=== PATIENT | male | born 1950 | race Caucasian/White ===

== ENCOUNTER 2021-01-29 13:47 | Outpatient (REF) | payer MEDICARE, SELFPAY ==
--- NOTE | ~2021-01-29 | XR_ITS ---
EXAMINATION: LEFT ANKLE AND LEFT FOOT. CLINICAL INFORMATION: Achilles tendinosis. COMPARISON: None TECHNIQUE: Left foot 3 views. Left ankle 3 views. FINDINGS: LEFT FOOT: There is no visible fracture, dislocation or subluxation. The soft tissues are normal. The ankle mortise and subtalar joints are normal. LEFT ANKLE: The ankle mortise and subtalar joints are normal. There is a small avulsion fracture fragment tip of medial malleolus. Tiny retrocalcaneal heel enthesophytes without soft tissue swelling. XR/XR foot LT min 3V IMPRESSION: Tiny retrocalcaneal enthesophyte without soft tissue swelling. There is an old avulsion fracture fragment tip of medial malleolus. There is minimal bimalleolar soft tissue swelling with no acute fracture or dislocation seen.
--- NOTE | ~2021-01-29 | XR_ITS ---
EXAMINATION: LEFT ANKLE AND LEFT FOOT. CLINICAL INFORMATION: Achilles tendinosis. COMPARISON: None TECHNIQUE: Left foot 3 views. Left ankle 3 views. FINDINGS: LEFT FOOT: There is no visible fracture, dislocation or subluxation. The soft tissues are normal. The ankle mortise and subtalar joints are normal. LEFT ANKLE: The ankle mortise and subtalar joints are normal. There is a small avulsion fracture fragment tip of medial malleolus. Tiny retrocalcaneal heel enthesophytes without soft tissue swelling. XR/XR ankle LT min 3V IMPRESSION: Tiny retrocalcaneal enthesophyte without soft tissue swelling. There is an old avulsion fracture fragment tip of medial malleolus. There is minimal bimalleolar soft tissue swelling with no acute fracture or dislocation seen.
== END 2021-01-29 13:48 | disposition home or self-care (01) ==
LOC: HO.XRAY 13:47
PROVIDERS: PCP Internal Medicine; Visit Provider Podiatrist
DX: M67.88 Other specified disorders of synovium and tendon, other site (principal)
CPT/HCPCS: 73610; 73630

== ENCOUNTER 2021-03-07 14:00 | Outpatient (RCR) | payer MEDICARE, SELFPAY | END 2021-03-20 13:51 | disposition home or self-care (01) | LOC: HO.PT 14:00 | PROVIDERS: PCP Internal Medicine; Visit Provider Podiatrist | DX: M76.62 Achilles tendinitis, left leg (principal) | CPT/HCPCS: 97035; 97110; 97112; 97140; 97162 ==

== ENCOUNTER 2021-04-02 10:31 | Outpatient (REF) | payer MEDICARE, SELFPAY ==
[2021-04-02 10:34] LABS: MANUAL DIFF FLAG NO
[2021-04-02 10:44] LABS: Basophils Percent Auto 0.5 % (0-2); Eosinophils Absolute Auto 0.2 X10*3/uL (0.0-0.4); Eosinophils Percent Auto 2.4 % (0-4); Hematocrit 46.2 % (42-52); Hemoglobin 14.8 g/dl (14.0-18.0); Imm Gran Abs Auto 0.02 X10*3/uL (0.00-0.03); Imm Gran Pct Auto 0.3 % (0.0-0.4); Lymphocytes Absolute Auto 1.9 X10*3/uL (1.2-4.9); Lymphocytes Percent Auto 28.5 % (20-40); Mean Corpuscular Hemoglobin 29.2 pg (27.0-33.0); Mean Corpuscular Volume 91.3 fL (80-98); Mean Platelet Volume 9.1 fL (9.4-12.4); Monocytes Absolute Auto 0.8 X10*3/uL (0.1-1.2); Monocytes Percent Auto 12.2 % (2-11); Neutrophils Absolute Auto 3.7 X10*3/uL (2.0-8.3); Neutrophils Percent Auto 56.1 % (45-73); Platelet Count 221 X10*3/uL (160-400); Red Blood Count 5.06 X10*6/uL (4.60-5.80); Red Cell Distribution Width 13.6 % (11.0-16.0); White Blood Count 6.6 X10*3/uL (4.8-10.8)
[2021-04-02 10:50] LABS: Appearance Urine CLEAR; Color Urine YELLOW; Glucose Urine UA NEG (NEG); Leukocyte Esterase Urine NEG (NEG); Nitrite Urine NEG (NEG); Urine Blood NEG (NEG); Urine Ketones NEG (NEG); Urine Protein NEG (NEG-TRACE)
[2021-04-02 11:05] LABS: Alanine Aminotransferase 15 U/L (0-40); Albumin Level 4.3 g/dL (3.5-5.0); Alkaline Phosphatase 57 U/L (39-117); Anion Gap 9 (12-20); Aspartate Amino Transferase 17 U/L (5-37); Bilirubin Total 0.7 mg/dL (0.0-1.0); Blood Urea Nitrogen 17 mg/dL (9-16); Calcium 9.1 mg/dL (8.4-10.2); Carbon Dioxide 28 mmol/L (22-29); Chloride 103 mmol/L (96-108); Cholesterol 190 mg/dL; Estimated Glomerular Filt Rate > 60; Glucose Fasting 105 mg/dL (60-99); HDL Cholesterol 45 mg/dL; LDL Cholesterol Calculated 117 mg/dl; Potassium 4.2 mmol/L (3.3-5.1); Sodium 136 mmol/L (135-145); Total Protein 7.5 g/dL (6.5-8.0); Triglycerides 144 mg/dL
[2021-04-02 11:13] LABS: Estimated Average Glucose 117 mg/dL; Hemoglobin A1c % 5.7 %
[2021-04-02 11:17] LABS: Creatinine Urine 77.25 mg/dL; Microalbumin Urine < 5.0 mg/L
== END 2021-04-02 10:32 | disposition home or self-care (01) ==
LOC: HO.LNP 10:31
PROVIDERS: Visit Provider Internal Medicine
DX: R73.09 Other abnormal glucose (principal); R09.89 Other specified symptoms and signs involving the circulatory and respiratory systems
CPT/HCPCS: 80053; 80061; 81003; 82043; 83036; 84153; 85025

== ENCOUNTER 2021-04-05 15:28 | Outpatient (REF) | payer MEDICARE, SELFPAY ==
[2021-04-11 01:41] LABS: Testosterone, Free 55.4 pg/mL (35.0-155.0); Testosterone, Total 315 ng/dL (250-1100)
== END 2021-04-05 15:29 | disposition home or self-care (01) ==
LOC: HO.LNP 15:28
PROVIDERS: Visit Provider Internal Medicine
DX: N52.9 Male erectile dysfunction, unspecified (principal)
CPT/HCPCS: 84402; 84403

== ENCOUNTER 2021-07-06 13:00 | Outpatient (RCR) | payer MEDICARE, SELFPAY | END 2021-07-06 15:23 | disposition home or self-care (01) | LOC: HO.PT 13:00 | PROVIDERS: Visit Provider Physician Assistant | DX: M76.62 Achilles tendinitis, left leg (principal) | CPT/HCPCS: 97033; 97110; 97161; 97530; 97535 ==

== ENCOUNTER 2022-03-11 11:09 | Outpatient (REF) | payer MEDICARE, SELFPAY ==
--- NOTE | ~2022-03-11 | XR_ITS ---
EXAMINATION: XR CERVICAL SPINE CLINICAL INFORMATION: Neck pain COMPARISON: None TECHNIQUE: AP, lateral, odontoid, Fuchs, and bilateral oblique views of the cervical spine FINDINGS: There is reversal of the normal cervical lordosis. The dens is intact. The lateral masses are normally positioned. Normal prevertebral soft tissues. There is multilevel degenerative disc disease manifested by loss of disc height, endplate sclerosis, and anterior as well as posterior osteophytosis particularly at C5-C6. Lung apices are clear. There is osseous neuroforaminal narrowing bilaterally at C4-C5 and C5-C6 on oblique views. XR/XR cervical spine 4V IMPRESSION: No acute osseous abnormality. Multilevel degenerative disc disease greatest at C5-C6 with osseous neuroforaminal narrowing bilaterally at C4-C5 and C5-C6. Consider cervical spine MRI for further evaluation as clinically indicated.
== END 2022-03-11 11:10 | disposition home or self-care (01) ==
LOC: HO.XRAY 11:09
PROVIDERS: PCP Internal Medicine; Visit Provider Internal Medicine
DX: M54.2 Cervicalgia (principal)
CPT/HCPCS: 72050

== ENCOUNTER 2022-04-02 10:55 | Outpatient (REF) | payer MEDICARE, SELFPAY ==
[2022-04-02 11:02] LABS: MANUAL DIFF FLAG NO
[2022-04-02 11:13] LABS: Basophils Percent Auto 0.5 % (0-2); Eosinophils Absolute Auto 0.1 X10*3/uL (0.0-0.4); Eosinophils Percent Auto 2.1 % (0-4); Hematocrit 45.7 % (42.0-52.0); Hemoglobin 14.9 g/dl (14.0-18.0); Imm Gran Abs Auto 0.02 X10*3/uL (0.00-0.03); Imm Gran Pct Auto 0.3 % (0.0-0.4); Lymphocytes Absolute Auto 2.2 X10*3/uL (1.2-4.9); Lymphocytes Percent Auto 35.2 % (20-40); Mean Corpuscular HGB Conc 32.6 g/dl (31.0-36.0); Mean Corpuscular Hemoglobin 29.3 pg (27.0-33.0); Mean Platelet Volume 9.6 fL (9.4-12.4); Monocytes Absolute Auto 0.7 X10*3/uL (0.1-1.2); Neutrophils Absolute Auto 3.2 x10*3/uL (2.0-8.3); Neutrophils Percent Auto 50.9 % (45-73); Platelet Count 206 X10*3/uL (160-400); Red Blood Count 5.08 X10*6/uL (4.60-5.80); Red Cell Distribution Width 13.6 % (11.0-16.0); White Blood Count 6.2 X10*3/uL (4.8-10.8)
[2022-04-02 11:21] LABS: Appearance Urine Clear; Color Urine Yellow; Glucose Urine UA Negative (Negative); Leukocyte Esterase Urine Negative (Negative); Nitrite Urine Negative (Negative); PH 5.5 (5.0-9.0); Urine Blood Negative (Negative); Urine Ketones Negative (Negative); Urine Protein Negative (Neg-Trace)
[2022-04-02 11:22] LABS: Estimated Average Glucose 114 mg/dL; Hemoglobin A1c % 5.6 %
[2022-04-02 11:25] LABS: Alanine Aminotransferase 11 U/L (0-40); Albumin Level 4.3 g/dL (3.5-5.0); Alkaline Phosphatase 58 U/L (39-117); Anion Gap 16 (12-20); Aspartate Amino Transferase 19 U/L (5-37); Bacteria Urine None Seen (None Seen); Blood Urea Nitrogen 13 mg/dL (9-16); Calcium 9.4 mg/dL (8.4-10.2); Carbon Dioxide 28 mmol/L (22-29); Chloride 101 mmol/L (96-108); Cholesterol 177 mg/dL; Estimated Glomerular Filt Rate > 60; Glucose Fasting 105 mg/dL (60-99); HDL Cholesterol 49 mg/dL; Hyaline Casts Urine 0-2 /LPF (0-2); LDL Cholesterol Calculated 104 mg/dl; Potassium 4.5 mmol/L (3.3-5.1); RBC Urine 0-2 /HPF (0-2); Sodium 140 mmol/L (135-145); Squamous Epithelial Cell Urine 0-2 /HPF (0-2); Total Protein 7.4 g/dL (6.5-8.0); Triglycerides 120 mg/dL; WBC Urine 0-5 /HPF (0-5)
[2022-04-02 11:46] LABS: PSA,Total (Free>4and<10) 1.92 ng/mL (0.00-4.00)
[2022-04-02 11:47] LABS: Creatinine Urine 143.97 mg/dL; Microalbum/Creatinine Ratio Ur 4.1 ug/mg cr
== END 2022-04-02 10:56 | disposition home or self-care (01) ==
LOC: HO.LNP 10:55
PROVIDERS: Visit Provider Internal Medicine
DX: Z12.5 Encounter for screening for malignant neoplasm of prostate (principal); R73.03 Prediabetes
CPT/HCPCS: 80053; 80061; 81001; 82043; 83036; 84153; 85025

== ENCOUNTER → 2022-04-25 08:43 | Outpatient (REF) | payer MEDICARE, SELFPAY ==
--- NOTE | 2022-04-25 09:00 | CA_ITS ---
Acquisition Time: 2022-04-25 09:10:20 Total Exercise Time: 00:07:30 Test Indications: CP Medications: SEE CHART Protocol: REJI Max HR: 137 BPM 90% of Pred: 151 BPM Max BP: 214/070 mmHG Max Work Load: 9.1 METS Exercise stress test with exercise 7 min 30 sec of Reji protocol, achieving 90% MPHR, without anginal symptoms, with isolated PVCs, with BP 150/80 at baseline and deena to 214/70 with exercise, without EKG changes meeting criteria for ischemia. In recovery his BP gradually returned to 138/80 . Test reviewed [facility] Dr Vaughan. Referred By: Markie Collier Overread By: EBONI BHATTI
== END ==
LOC: HO.CARD 08:43
PROVIDERS: PCP Internal Medicine; Visit Provider Internal Medicine
DX: R07.89 Other chest pain (principal)
CPT/HCPCS: 93017

== ENCOUNTER 2023-04-08 12:04 | Outpatient (REF) | payer MEDICARE, SELFPAY | END 2023-04-08 12:05 | disposition home or self-care (01) | LOC: HO.LNP 12:04 | PROVIDERS: Visit Provider Internal Medicine | DX: Z12.5 Encounter for screening for malignant neoplasm of prostate (principal); R73.03 Prediabetes; I10 Essential (primary) hypertension | CPT/HCPCS: 80053; 80061; 81001; 82043; 82570; 83036; 84153; 85025 ==

== ENCOUNTER 2024-03-30 11:27 | Outpatient (REF) | payer MEDICARE, SELFPAY ==
[2024-03-30 11:31] LABS: MANUAL DIFF FLAG NO
[2024-03-30 11:52] LABS: Basophils Percent Auto 0.7 % (0-2); Eosinophils Absolute Auto 0.2 X10*3/uL (0.0-0.4); Eosinophils Percent Auto 3.8 % (0-4); Hematocrit 42.9 % (42.0-52.0); Hemoglobin 14.1 g/dl (14.0-18.0); Imm Gran Abs Auto 0.01 X10*3/uL (0.00-0.03); Imm Gran Pct Auto 0.2 % (0.0-0.4); Lymphocytes Absolute Auto 2.2 X10*3/uL (1.2-4.9); Lymphocytes Percent Auto 36.4 % (20-40); Mean Corpuscular HGB Conc 32.9 g/dl (31.0-36.0); Mean Corpuscular Hemoglobin 29.9 pg (27.0-33.0); Mean Corpuscular Volume 91.1 fL (80.0-98.0); Mean Platelet Volume 9.3 fL (9.4-12.4); Monocytes Absolute Auto 0.7 X10*3/uL (0.1-1.2); Monocytes Percent Auto 11.4 % (2-11); Neutrophils Absolute Auto 2.9 x10*3/uL (2.0-8.3); Neutrophils Percent Auto 47.5 % (45-73); Platelet Count 194 X10*3/uL (160-400); Red Blood Count 4.71 X10*6/uL (4.60-5.80); White Blood Count 6.1 X10*3/uL (4.8-10.8)
[2024-03-30 12:00] LABS: Estimated Average Glucose 114 mg/dL; Hemoglobin A1C 134.8802 umol/L; Hemoglobin A1c % 5.6 % (<6.0); Total Hemoglobin (HGBA1C) 3561.5968 umol/L
[2024-03-30 12:03] LABS: Alanine Aminotransferase 16 U/L (0-40); Albumin Level 4.2 g/dL (3.5-5.0); Alkaline Phosphatase 51 U/L (39-117); Anion Gap 10 (12-20); Aspartate Amino Transferase 17 U/L (5-37); Bilirubin Total 0.8 mg/dL (0.0-1.0); Blood Urea Nitrogen 18 mg/dL (9-16); Calcium 9.5 mg/dL (8.4-10.2); Carbon Dioxide 30 mmol/L (22-29); Chloride 105 mmol/L (96-108); Cholesterol 188 mg/dL (<200); Estimated Glomerular Filt Rate > 60; Glucose Fasting 100 mg/dL (60-99); HDL Cholesterol 49 mg/dL (>40); LDL Cholesterol Calculated 115 mg/dL (<100); Potassium 4.1 mmol/L (3.3-5.1); Sodium 141 mmol/L (135-145); Total Protein 7.4 g/dL (6.5-8.0); Triglycerides 124 mg/dL (<150)
[2024-03-30 12:19] LABS: Appearance Urine Clear; Color Urine Yellow; Glucose Urine UA Negative (Negative); Leukocyte Esterase Urine Negative (Negative); Microalbum/Creatinine Ratio Ur 3.9 ug/mg cr (<30); Nitrite Urine Negative (Negative); PH 5.5 (5.0-9.0); Specific Gravity - Urine 1.025 (1.005-1.025); Urine Blood Negative (Negative); Urine Ketones Negative (Negative); Urine Protein Negative (Neg-Trace)
[2024-03-30 12:25] LABS: PSA,Total (Free>4and<10) 1.94 ng/mL (0.00-4.00)
[2024-03-30 12:27] LABS: Bacteria Urine None Seen (None Seen); Hyaline Casts Urine 0-2 /LPF (0-2); RBC Urine 0-2 /HPF (0-2); Squamous Epithelial Cell Urine 0-2 /HPF (0-2); WBC Urine 0-5 /HPF (0-5)
== END 2024-03-30 11:28 | disposition home or self-care (01) ==
LOC: HO.LNP 11:27
PROVIDERS: Visit Provider Internal Medicine
DX: Z00.00 Encounter for general adult medical examination without abnormal findings (principal); R73.09 Other abnormal glucose; I10 Essential (primary) hypertension; Z12.5 Encounter for screening for malignant neoplasm of prostate
CPT/HCPCS: 80053; 80061; 81001; 82043; 82570; 83036; 84153; 85025

== ENCOUNTER 2024-07-06 11:05 | Outpatient (RCR) | payer MEDICARE, SELFPAY ==
[2024-06-15 09:01] VITALS: BP 133/78; PULSE 74
== END 2024-08-19 13:33 | disposition home or self-care (01) ==
LOC: HO.PT 11:05
PROVIDERS: PCP Internal Medicine; Visit Provider Internal Medicine
DX: H81.13 Benign paroxysmal vertigo, bilateral (principal)
CPT/HCPCS: 95992; 97112; 97140; 97162

== ENCOUNTER 2025-06-10 10:14 | Outpatient (REF) | payer MEDICARE, SELFPAY ==
[2025-06-10 10:20] LABS: MANUAL DIFF FLAG NO
[2025-06-10 11:18] LABS: Appearance Urine Cloudy; Glucose Urine UA Negative (Negative); PH 5.0 (5.0-9.0); Specific Gravity - Urine 1.020 (1.005-1.025)
[2025-06-10 11:21] LABS: Hematocrit 44.5 % (42.0-52.0); Hemoglobin 14.5 g/dl (14.0-18.0); Imm Gran Abs Auto 0.03 X10*3/uL (0.00-0.03); Imm Gran Pct Auto 0.5 % (0.0-0.4); Lymphocytes Absolute Auto 2.0 X10*3/uL (1.2-4.9); Mean Corpuscular HGB Conc 32.6 g/dl (31.0-36.0); Mean Corpuscular Hemoglobin 29.8 pg (27.0-33.0); Mean Corpuscular Volume 91.4 fL (80.0-98.0); NRBC Abs Auto 0.000 X10*3/uL (0.0-0.012); NRBC Pct Auto 0.0 /100WBC (0.0-0.2); Platelet Count 200 X10*3/uL (160-400); Red Blood Count 4.87 X10*6/uL (4.60-5.80); White Blood Count 5.5 X10*3/uL (4.8-10.8)
[2025-06-10 11:25] LABS: Alanine Aminotransferase 20 U/L (0-40); Albumin Level 4.3 g/dL (3.5-5.0); Alkaline Phosphatase 50 U/L (39-117); Anion Gap 12 (12-20); Aspartate Amino Transferase 27 U/L (5-37); Blood Urea Nitrogen 16 mg/dL (9-16); Calcium 9.1 mg/dL (8.4-10.2); Carbon Dioxide 28 mmol/L (22-29); Chloride 104 mmol/L (96-108); Cholesterol 197 mg/dL (<200); Estimated Glomerular Filt Rate > 60; HDL Cholesterol 52 mg/dL (>40); Potassium 3.8 mmol/L (3.3-5.1); Sodium 140 mmol/L (135-145); Total Protein 7.2 g/dL (6.5-8.0); Triglycerides 126 mg/dL (<150)
[2025-06-10 11:48] LABS: Microalbum/Creatinine Ratio Ur 4.8 ug/mg cr (<30)
[2025-06-10 12:01] LABS: PSA,Total (Free>4and<10) 2.36 ng/mL (0.00-4.00)
== END 2025-06-10 10:15 | disposition home or self-care (01) ==
LOC: HO.LNP 10:14
PROVIDERS: Visit Provider Internal Medicine
DX: Z00.00 Encounter for general adult medical examination without abnormal findings (principal); I10 Essential (primary) hypertension; R73.09 Other abnormal glucose; Z12.5 Encounter for screening for malignant neoplasm of prostate
CPT/HCPCS: 80053; 80061; 81001; 82043; 82570; 83036; 84153; 85025